=== PATIENT | male | born 1975 | race Caucasian/White ===

== ENCOUNTER 2017-06-10 01:21 | Emergency (ER) | payer MEDICAID ==
[~2017-06-10] VITALS: Ht 188 cm; Wt 168.0 kg
[2017-06-10] MEDS ORDERED: BACITRACIN ZINC OINT UDPKT TOP ONE (02:15)
[2017-06-10] MEDS ORDERED: LIDOCAINE HCL 1% 20ML VIAL (Pyxis) INJ MC ONE (02:15)
[2017-06-10] MEDS ORDERED: IBUPROFEN 600MG TABLET PO ONE (04:45)
[2017-06-10] MEDS ORDERED: TETANUS, DIPHTHERIA, PERTUSSIS VAC/PF 0.5ML (>7YR OLD) IM ONE (04:45)
[2017-06-10 05:29] VITALS: BP 177/106
== END 2017-06-10 05:30 | disposition home or self-care (01) ==
LOC: ER 01:21
DX: S01.01XA Laceration without foreign body of scalp, initial encounter (principal); S01.112A Laceration without foreign body of left eyelid and periocular area, initial encounter; I10 Essential (primary) hypertension; Z88.0 Allergy status to penicillin; Z88.2 Allergy status to sulfonamides; Y08.89XA Assault by other specified means, initial encounter; Y93.89 Activity, other specified; Y92.89 Other specified places as the place of occurrence of the external cause; Y99.8 Other external cause status
CPT/HCPCS: 12002; 12011; 70450; 90471; 90715; 99284; J3490; X7700; Z7610